=== PATIENT | male | born 1950 | race Caucasian/White ===

== ENCOUNTER 2017-12-21 11:27 | Day surgery (SDC) | payer MEDICARE, SELFPAY ==
--- NOTE | 2017-12-21 | PATH_ITS ---
[facility] Accession Number: [id number] . 01 Material submitted: . TRANSVERSE COLON POLYP . 02 Diagnosis: Transverse Colon Polyp: Tubular adenoma. MRV/12/23/2017 . 02 Electronically signed: . Ilan Rosales MD, PhD, Pathologist NPI- [id number] . 01 Gross description: . TRANSVERSE COLON POLYP: Received in formalin is 1 fragment(s) of grewal, soft tissue measuring 0.6 x 0.4 x 0.2 cm submitted entirely in 1 cassette(s) /CKI /CKI . 02 Pathologist provided ICD-10: D12.3 . 02 CPT . 965149 Performed at: 01 [facility] [address] [facility], [place], [place] [id number] MD Lev Partida MD Phone: [phone] Performed at: 02 [facility] [address] [place], [place] [id number] MD Terrell Elizondo MD Phone: [phone]
[2017-12-21 11:45] VITALS: BP 119/76; PULSE 73; RESP 16; TEMP 36.4; O2SAT 96; BMI 28.0
[2017-12-21] MEDS: SODIUM CHLORIDE 0.9% 1,000 ML 70 ML IV (11:57)
--- NOTE | 2017-12-21 12:21 | PM.HP.1 ---
History of Present Illness Date Patient Seen: 12/21/17 Chief complaint: [id number] NOT ON C LIST Narrative: 67-year-old male with type 2 diabetes and hypertension who is here for polyp surveillance. Patient currently taking aspirin. Last colonoscopy report is not available to me. The patient currently has no active GI issues or alarm symptoms. Patient History Family & Social History Social History: household members spouse Meds Home Medications Medication Instructions Recorded Confirmed Type ROSUVASTATIN CALCIUM (Crestor) 40 mg PO Q DAY #0 11/03/07 History quetiapine [Seroquel] 50 mg PO HS #0 12/31/10 History tramadol 50 mg PO Q8HP #0 12/31/10 History ASPIRIN (Aspirin) 81 mg PO Q DAY #0 04/17/11 History diazepam [Valium] 5 mg PO BID #0 04/17/11 History duloxetine [Cymbalta] 60 mg PO BID #0 04/17/11 History glimepiride [Amaryl] 4 mg PO [facility] #0 04/17/11 History metformin 1,000 mg PO BID #0 04/17/11 History irbesartan [Avapro] 300 mg PO QDAY #30 08/16/11 Rx Allergies Allergy/AdvReac Type Severity Reaction Status Date / Time INGREDIENT: NKDA - NO KNOWN Allergy Unknown Uncoded 07/20/17 11:53 DRUG ALLERGIES Review of Systems Review of Systems All systems reviewed & are unremarkable except as noted in HPI and below Exam Vital Signs (past 8 hours): - 12/21/17 11:45 Temperature 97.6 F Pulse Rate 73 Respiratory Rate 16 Blood Pressure 119/76 Pulse Oximetry 96 Oxygen Delivery Method Room Air Narrative Exam Narrative: General: Patient is overweight, not in apparent distress Cardiovascular: Regular rate and rhythm, no murmurs, rubs, or gallops; no evidence of edema; no palpable abdominal aortic aneurysm Gastrointestinal: Normoactive bowel sounds, soft, nontender, nondistended, no rebound tenderness, no hepatosplenomegaly, no evidence of hernia Assessment & Plan Plan: Assessment/Plan Narrative: 67-year-old male with history of colon polyps here for polyp surveillance. He has no active GI symptoms and appears stable for a colonoscopy. He is currently taking aspirin. Regarding the procedure(s), the risks and potential complications, benefits, and alternatives (including not doing the procedure) were discussed with the patient. The risks include but are not limited to bleeding, infection, perforation which may require surgical intervention, missed lesions, and adverse reactions to sedative medicines. After a question and answer period, the patient agreed to proceed with the procedure(s) and gives informed consent.
--- NOTE | 2017-12-21 12:42 | PM.HP.1 ---
History of Present Illness Chief complaint: [id number] NOT ON C LIST Narrative: 67-year-old male with type 2 diabetes and hypertension who is here for polyp surveillance. Patient currently taking aspirin. Last colonoscopy report is not available to me. The patient states he had polyps on his last colonoscopy which was around 10 years ago. The patient currently has no active GI issues or alarm symptoms. He is currently taking a baby aspirin. Patient History Family & Social History Social History: household members spouse Meds Home Medications Medication Instructions Recorded Confirmed Type ROSUVASTATIN CALCIUM (Crestor) 40 mg PO Q DAY #0 11/03/07 History quetiapine [Seroquel] 50 mg PO HS #0 12/31/10 History tramadol 50 mg PO Q8HP #0 12/31/10 History ASPIRIN (Aspirin) 81 mg PO Q DAY #0 04/17/11 History diazepam [Valium] 5 mg PO BID #0 04/17/11 History duloxetine [Cymbalta] 60 mg PO BID #0 04/17/11 History glimepiride [Amaryl] 4 mg PO [facility] #0 04/17/11 History metformin 1,000 mg PO BID #0 04/17/11 History irbesartan [Avapro] 300 mg PO QDAY #30 08/16/11 Rx Allergies Allergy/AdvReac Type Severity Reaction Status Date / Time INGREDIENT: NKDA - NO KNOWN Allergy Unknown Uncoded 07/20/17 11:53 DRUG ALLERGIES Review of Systems Review of Systems All systems reviewed & are unremarkable except as noted in HPI and below Exam Vital Signs (past 8 hours): - 12/21/17 11:45 Temperature 97.6 F Pulse Rate 73 Respiratory Rate 16 Blood Pressure 119/76 Pulse Oximetry 96 Oxygen Delivery Method Room Air Narrative Exam Narrative: General: Patient is overweight, not in apparent distress Cardiovascular: Regular rate and rhythm, no murmurs, rubs, or gallops; no evidence of edema; no palpable abdominal aortic aneurysm Gastrointestinal: Normoactive bowel sounds, soft, nontender, nondistended, no rebound tenderness, no hepatosplenomegaly, no evidence of hernia Assessment & Plan Plan: Assessment/Plan Narrative: [age] year old male with a history of colon polyps on last colonoscopy 10 years ago who is here for polyp surveillance. The patient currently has no active GI issues or alarm symptoms. He is on aspirin as an outpatient. Regarding the procedure(s), the risks and potential complications, benefits, and alternatives (including not doing the procedure) were discussed with the patient. The risks include but are not limited to bleeding, infection, perforation which may require surgical intervention, missed lesions, and adverse reactions to sedative medicines. After a question and answer period, the patient agreed to proceed with the procedure(s) and gives informed consent.
--- NOTE | 2017-12-21 12:48 | PM.HP.1 ---
History of Present Illness Date Patient Seen: 12/21/17 Chief complaint: [id number] NOT ON C LIST Narrative: 67-year-old male who is here for polyp surveillance. The patient had a colonoscopy around 10 years ago and was told he had polyps. At present the patient currently has no active GI issues or alarm symptoms. He is taking a baby aspirin as an outpatient. Patient History Family & Social History Social History: household members spouse Meds Home Medications Medication Instructions Recorded Confirmed Type ROSUVASTATIN CALCIUM (Crestor) 40 mg PO Q DAY #0 11/03/07 History quetiapine [Seroquel] 50 mg PO HS #0 12/31/10 History tramadol 50 mg PO Q8HP #0 12/31/10 History ASPIRIN (Aspirin) 81 mg PO Q DAY #0 04/17/11 History diazepam [Valium] 5 mg PO BID #0 04/17/11 History duloxetine [Cymbalta] 60 mg PO BID #0 04/17/11 History glimepiride [Amaryl] 4 mg PO [facility] #0 04/17/11 History metformin 1,000 mg PO BID #0 04/17/11 History irbesartan [Avapro] 300 mg PO QDAY #30 08/16/11 Rx Allergies Allergy/AdvReac Type Severity Reaction Status Date / Time INGREDIENT: NKDA - NO KNOWN Allergy Unknown Uncoded 07/20/17 11:53 DRUG ALLERGIES Review of Systems Review of Systems All systems reviewed & are unremarkable except as noted in HPI and below Exam Vital Signs (past 8 hours): - 12/21/17 11:45 Temperature 97.6 F Pulse Rate 73 Respiratory Rate 16 Blood Pressure 119/76 Pulse Oximetry 96 Oxygen Delivery Method Room Air Narrative Exam Narrative: General: Patient is overweight, not in apparent distress Cardiovascular: Regular rate and rhythm, no murmurs, rubs, or gallops; no evidence of edema; no palpable abdominal aortic aneurysm Gastrointestinal: Normoactive bowel sounds, soft, nontender, nondistended, no rebound tenderness, no hepatosplenomegaly, no evidence of hernia Assessment & Plan Plan: Assessment/Plan Narrative: 67-year-old male who is here for polyp surveillance. Her colonoscopy performed 10 years ago which showed polyps. He currently has no active GI issues. Regarding the procedure(s), the risks and potential complications, benefits, and alternatives (including not doing the procedure) were discussed with the patient. The risks include but are not limited to bleeding, infection, perforation which may require surgical intervention, missed lesions, and adverse reactions to sedative medicines. After a question and answer period, the patient agreed to proceed with the procedure(s) and gives informed consent.
--- NOTE | 2017-12-21 12:53 | PM.OP.ENDO ---
Operative Date/Time/Diagnoses Date of procedure: 12/21/17 Procedure Notes Procedure in detail: Surgeon: Guillermo Tena MD Procedure: Colonoscopy with polypectomy Preoperative diagnosis: Colon polyp surveillance Postoperative diagnosis: Colon polyp status post polypectomy, grade 1 internal hemorrhoids Medications: Conscious sedation using 6 mg IV of Midazolam and 100 mcg IV of Fentanyl Preanesthesia Assessment An H and P was performed/updated and the Px?s ASA class is 2. The procedure was discussed in detail with the patient. The potential risks and complications including infection, bleeding, missed lesions, perforation, need for surgery in case of perforation, prolonged hospital stay, and were explained. A brief question and answer period was allotted and once all questions were answered, informed consent was obtained. The patient was brought back to the procedure room and placed on standard monitoring. The patient?s vital signs were monitored continuously throughout the entire procedure. Prior to starting, a timeout was performed to confirm the patient?s identity, allergies, medications, and procedure. Procedure in detail The patient was placed in left lateral decubitus position and once adequate sedation was obtained a SUNDAY was performed. The digital rectal examination did not reveal any palpable lesions. The tip of the colonoscope was placed in the anal canal and advanced without difficulty all the way to the cecum which was identified by the appendiceal orifice and the ileocecal valve. The terminal ileum was intubated to a distance of 5 cm from the ileocecal valve and the mucosa appeared normal. The colonoscope was then brought back to the cecum and careful examination of all wallace of the colon was performed with irrigation of any residual stool. In the transverse colon there was note of a 3 mm sessile polyp which was removed in its entirety by means of a Jumbo cold forceps with minimal bleeding. Examination of the remainder of the colon revealed no further mucosal abnormalities Retroflexion was performed in the rectum which revealed grade 1 internal hemorrhoids The patient tolerated the procedure well and will be brought back to the recovery area to be discharged once criteria are met. The prep was judged to be good/excellent and adequate to identify polyps less than 5 mm. The withdrawal time was 8 min. The total procedure time from initial sedation was 15 min. Complications There were no complications and estimated blood loss was minimal. Recommendations: Resume previous diet Continue outPx medications Follow up pathology results Repeat colonoscopy in 5 years An emergency contact number was given to the patient for any complications related to the procedure
[2017-12-21] MEDS: MIDAZOLAM 5 MG/5 ML VIAL IV (13:13)
[2017-12-21] MEDS: fentaNYL 250 MCG/5 ML INJ IV (13:18)
[2017-12-21 13:20] VITALS: BP 109/67; PULSE 77; RESP 16; TEMP 36.6; O2SAT 96
--- NOTE | 2017-12-21 13:21 | PM.DS.1 ---
History of Present Illness Chief complaint: [id number] NOT ON C LIST Narrative: 67-year-old male who is here for polyp surveillance. The patient had a colonoscopy around 10 years ago and was told he had polyps. At present the patient currently has no active GI issues or alarm symptoms. He is taking a baby aspirin as an outpatient. Discharge Providers Primary care physician: Francisco Levine MD Discharge provider: Guillermo Tena MD Exam Vital Signs (past 8 hours): - 12/21/17 11:45 Temperature 97.6 F Pulse Rate 73 Respiratory Rate 16 Blood Pressure 119/76 Pulse Oximetry 96 Oxygen Delivery Method Room Air Narrative Exam Narrative: General: Patient is overweight, not in apparent distress Cardiovascular: Regular rate and rhythm, no murmurs, rubs, or gallops; no evidence of edema; no palpable abdominal aortic aneurysm Gastrointestinal: Normoactive bowel sounds, soft, nontender, nondistended, no rebound tenderness, no hepatosplenomegaly, no evidence of hernia Discharge Plan Discharge Plan Patient Disposition: Home Discharge Med Rec/Prescriptions Prescriptions: Continue ROSUVASTATIN CALCIUM (Crestor) 40 mg PO Q DAY Qty: 0 RF: 0 tramadol 50 MG tablet 50 mg PO Q8HP Qty: 0 RF: 0 quetiapine [Seroquel] 50 MG tablet 50 mg PO HS Qty: 0 RF: 0 metformin 1,000 MG tablet 1,000 mg PO BID Qty: 0 RF: 0 duloxetine [Cymbalta] 60 MG capsule,delayed release(DR/EC) 60 mg PO BID Qty: 0 RF: 0 ASPIRIN (Aspirin) 81 mg PO Q DAY Qty: 0 RF: 0 diazepam [Valium] 5 MG tablet 5 mg PO BID Qty: 0 RF: 0 glimepiride [Amaryl] 4 MG tablet 4 mg PO [facility] Qty: 0 RF: 0 irbesartan [Avapro] 300 MG tablet 300 mg PO QDAY Qty: 30 RF: 3 Discharge Orders: Discharge (Order); Ordered 12/21/17 Ordered By: Guillermo Tena Provider Discharge Instructions Diet: Diet as Tolerated Visit Report/Discharge Packet Stand Alone Forms: Surgery Discharge Discharge Data Primary Care Provider: Francicso Levine V Attending Provider: Guillermo Tena
[2017-12-21 13:25] VITALS: BP 138/69; PULSE 70; RESP 18; TEMP 36.1; O2SAT 97
--- NOTE | 2017-12-21 13:49 | SUR.PHASEII ---
pt was placed in room 1 and no report was received assumed care of pt when I found him in the room. Pt was assessed and he was stable and vital signs stable. pt was drinking without difficulty. Lungs were clear and bowel sounds active. pt had d/c orders. Pt was wide awake and stated he wanted to go home. Pt pleasant and cooperative and steady on his feet.
== END 2017-12-21 13:40 | disposition home or self-care (01) ==
PROVIDERS: PCP Internal Medicine; Visit Provider Internal Medicine Gastroenterology
PROC: 0DJD8ZZ Inspection of Lower Intestinal Tract, Via Natural or Artificial Opening Endoscopic (ICD-10-PCS; CPT 45378; principal; 2017-12-21 12:30)
DX: Z86.010 Personal history of colon polyps (principal); K64.0 First degree hemorrhoids; D12.3 Benign neoplasm of transverse colon
CPT/HCPCS: 45380; J2250; J3010

== ENCOUNTER → 2019-12-24 19:14 | Outpatient (ROUT) | payer MEDICARE, SELFPAY ==
[2019-12-24 19:43] LABS: HEMOLYSIS < 15 (0-50)
[2019-12-24 19:50] LABS: Aspartate Aminotransferase 21 IU/L (17-59); BUN Creatinine Ratio 27.3 (6-22); Blood Urea Nitrogen 21 mg/dL (9-20); Calcium 9.4 mg/dL (8.4-10.2); Carbon Dioxide 32 mmol/L (22-32); Chloride 98 mmol/L (98-107); Cholesterol 136 mg/dL (140-199); Estimated Glomerular Filt Rate > 60.0 mL/min (>60); Glucose 166 mg/dL (80-110); HDL Cholesterol 45 mg/dL (40-60); LDL Cholesterol Calculated 41 mg/dL (<100); Potassium 3.4 mmol/L (3.4-5.1); Sodium 138 mmol/L (137-145); Triglycerides 251 mg/dL (35-150)
== END ==
PROVIDERS: PCP Internal Medicine; Visit Provider Internal Medicine
DX: I10 Essential (primary) hypertension (principal); E78.2 Mixed hyperlipidemia; N52.9 Male erectile dysfunction, unspecified
CPT/HCPCS: 80048; 80061; 84153; 84450

== ENCOUNTER → 2023-03-24 11:50 | Outpatient (CLI) | payer MEDICARE, SELFPAY ==
[2023-03-24 15:35] LABS: Adenovirus F 40/41 Not Detected (Not Detect); Astrovirus Not Detected (Not Detect); Campylobacter Not Detected (Not Detect); Clostridium difficile toxin AB Not Detected (Not Detect); Cryptosporidium Not Detected (Not Detect); Cyclospora cayetanensis Not Detected (Not Detect); Entamoeba histolytica Not Detected (Not Detect); Enteroaggregative E.coli Not Detected (Not Detect); Enteropathogenic E.coli Not Detected (Not Detect); Enterotoxigenic E.coli It/st Not Detected (Not Detect); Giardia lamblia Not Detected (Not Detect); Norovirus GI/GII Not Detected (Not Detect); Plesiomonsa shigelloides Not Detected (Not Detect); Rotavirus A Not Detected (Not Detect); Salmonella Not Detected (Not Detect); Sapovirus Not Detected (Not Detect); Shiga-like toxin-prod E.coli Not Detected (Not Detect); Shigella/Enteroinvasive E.coli Not Detected (Not Detect); Vibrio Not Detected (Not Detect); Vibrio cholerae Not Detected (Not Detect); Yersinia enterocolitica Not Detected (Not Detect)
[2023-03-28 14:59] LABS: Calprotectin, Stool 20 ug/g (0-120)
== END ==
PROVIDERS: PCP Internal Medicine; Referring Provider Internal Medicine Gastroenterology; Visit Provider Internal Medicine Gastroenterology
DX: E11.43 Type 2 diabetes mellitus with diabetic autonomic (poly)neuropathy (principal); R79.0 Abnormal level of blood mineral; R19.7 Diarrhea, unspecified
CPT/HCPCS: 83993; 87507

== ENCOUNTER → 2024-02-10 12:00 | Outpatient (CLI) | payer MEDICARE, SELFPAY ==
[2024-02-10 12:48] LABS: Hematocrit 42.3 % (41-53); Hemoglobin 14.5 g/dL (13.5-17.5); Mean Corpuscular HGB Conc 34.2 % (30-36); Mean Corpuscular Hemoglobin 30.2 PG (26-34); Mean Corpuscular Volume 88.3 fL (80-100); Platelet Count 194 X10^3/uL (150-400); Red Blood Cell Count 4.79 X10^6/uL (4.5-5.9); Red Cell Distribution Width 13.1 % (11.6-14.8); White Blood Cell Count 8.5 X10^3/uL (4.5-11.0)
[2024-02-10 12:59] LABS: Hemoglobin A1C% w Est Avg Glu 9.2 % (4.0-6.0)
[2024-02-10 13:06] LABS: HEMOLYSIS < 15 (0-50); Iron 101 ug/dL (49-181)
[2024-02-10 13:10] LABS: Alanine Aminotransferase 39 IU/L (<50); Albumin 4.1 g/dL (3.5-5.0); Albumin Globulin Ratio 1.9 (1.0-2.8); Alkaline Phosphatase 81 U/L (38-126); Aspartate Aminotransferase 30 IU/L (17-59); Bilirubin Total 0.7 mg/dL (0.2-1.3); Blood Urea Nitrogen 16 mg/dL (9-20); Calcium 9.4 mg/dL (8.4-10.2); Carbon Dioxide 27 mmol/L (22-32); Chloride 101 mmol/L (98-107); Cholesterol 97 mg/dL (140-199); Estimated Glomerular Filt Rate > 60 mL/min (>60); Globulin 2.2 g/dL (1.7-4.1); Glucose 307 mg/dL (80-110); HDL Cholesterol 47 mg/dL (40-60); HEMOLYSIS < 15 (0-50); LDL Cholesterol Calculated 16 mg/dL (<100); Potassium 4.5 mmol/L (3.4-5.1); Sodium 137 mmol/L (137-145); Total Protein 6.3 g/dL (6.3-8.2); Triglycerides 171 mg/dL (35-150)
[2024-02-10 13:17] LABS: Percent Iron Saturation 27 % (20-50); Total Iron Binding Capacity 375 ug/dL (261-462); Transferrin 296 mg/dL (206-381)
[2024-02-10 13:37] LABS: Prostate Specific Antigen 1.17 ng/mL (0.10-4.00)
[2024-02-10 13:41] LABS: Ferritin 39 ng/mL (18-464)
[2024-02-10 14:29] LABS: Creatinine Urine Random 131.03 mg/dL
[2024-02-10 14:36] LABS: Microalbumin Urine Random 3.1 mg/dL (0-1.6)
== END ==
PROVIDERS: PCP Internal Medicine; Referring Provider Internal Medicine; Visit Provider Internal Medicine
DX: N13.8 Other obstructive and reflux uropathy (principal); E11.69 Type 2 diabetes mellitus with other specified complication; N40.1 Benign prostatic hyperplasia with lower urinary tract symptoms; E78.2 Mixed hyperlipidemia; D50.9 Iron deficiency anemia, unspecified; E11.42 Type 2 diabetes mellitus with diabetic polyneuropathy; I10 Essential (primary) hypertension; F41.1 Generalized anxiety disorder; G47.00 Insomnia, unspecified; G47.09 Other insomnia; D50.0 Iron deficiency anemia secondary to blood loss (chronic); Z86.0100 Personal history of colon polyps, unspecified
CPT/HCPCS: 36415; 80053; 80061; 82043; 82570; 82728; 83036; 83540; 83550; 84153; 85027

== ENCOUNTER → 2024-06-19 13:45 | Outpatient (CLI) | payer MEDICARE, SELFPAY ==
--- NOTE | 2024-06-19 14:04 | DIAB.MNT ---
Initial Diabetes Medical Nutrition Therapy Assessment Name: Gatito Turk I Date: 06/19/24 Time: 2-3p Dx: Type II Diabetes Provider: Julianna Preferred Learning Style: Scott Mederos presents for initial DM visit. Reports h/o diarrhea, and has been taking probiotics which has been helpful. Increased Rybelsus to 7mg, no changes to appetite. No diarrhea reported. Provider would like to have him trial CGM sample. He is open to this and would like to try FSL3. If he likes this will discuss OTC options Wants to know if he can eat popcorn or ice cream. Needs breakfast ideas that are filling. Cooks breakfast in butter at times. Avoiding eggs. Cholesterol in range, TG elevated. Eating a coconut cream whipped that seems higher in sugar and sat fat than regular whipped cream. Grandfather lost eye sight from diabetes. UTD on his eye appt. Lost his a couple years ago. Getting remarried. Diet Recall: 8am: 1/3c berries with 1.5c oatmeal with milk +/- almonds 12-1p: ww sandwich egg salad OR soup 530-630p: chicken and acorn squash OR 2 enchiladas, 1/2c rice and 1/2c beans 730-8p: 1c sf canned peaches and 1 banana +/- johanna whipped cream 16oz water sf electrolyte beverage Anthropometrics: Ht: 5'10 Wt: 180# Physical Activity: Just joined a gym and wants to start walking. Self-Monitoring Blood Glucose: 2x per week, FBG. Usually running 150-250mg/dl, often running above goal per report. Diabetes Medications: 25mg Jardiance 1000mg Metformin BID 100mg Januvia 7mg Rybelsus Pertinent Labs: HgA1c: 9.2% Past Medical History: (Last Reviewed 05/08/24 @ 07:43 by Francisco Levine MD) BPH w urinary obs/LUTS DM type 2 with diabetic dyslipidemia Essential hypertension Generalized anxiety disorder History of colonic polyps Insomnia Iron deficiency anemia Mixed hyperlipidemia Polyneuropathy, unspecified Type 2 diabetes mellitus with polyneuropathy Nutrition Rx: Carbohydrates: Meal:45g Snack:15-30g Nutrition Diagnosis: - Excessive CHO intake r/t nutrition knowledge deficit aeb diet recall - Self monitoring deficit r/t stage of change aeb checking 2x per week Intervention: This participant was very receptive. Provided appropriate educational handouts. Discussed the following topics: Completed intake assessment. Discussed barriers to care. Pathophysiology of T2DM CGM education, precautions, and self placement Importance of self-monitoring, how often, and when to check. Suggested checking at different times to evaluate meals Recommended servings for carbohydrates at meals and snacks Heart health nutrition: saturated fats Brainstormed appropriate meal/snack ideas based on food preferences Role of physical activity and following provider guidelines for safety Created SMART goals for patient self-care and success. Goals: Wear CGM x 15 days Cook Urdu [place] in olive oil Limit oatmeal to 1c cooked and add protein Try half banana and add protein to peaches Follow-up: ANILA PASCUAL follow-up in 2-3 weeks. Will cover label reading more next visit. Melba Montero RDN, CDCES Certified Diabetes Care and Behavioral Health Care Coordinator P: [phone] Thank you for this referral
== END ==
PROVIDERS: PCP Internal Medicine; Referring Provider Internal Medicine
DX: E11.42 Type 2 diabetes mellitus with diabetic polyneuropathy (principal); Z71.3 Dietary counseling and surveillance; Z83.3 Family history of diabetes mellitus; Z79.84 Long term (current) use of oral hypoglycemic drugs
CPT/HCPCS: 97802

== ENCOUNTER → 2024-08-13 06:58 | Outpatient (CLI) | payer MEDICARE, SELFPAY ==
[2024-08-13 07:53] LABS: Hemoglobin 14.8 g/dL (13.5-17.5); Mean Corpuscular HGB Conc 33.7 % (30-36); Mean Corpuscular Hemoglobin 29.5 PG (26-34); Mean Corpuscular Volume 87.6 fL (80-100); Platelet Count 180 X10^3/uL (150-400); Red Blood Cell Count 5.03 X10^6/uL (4.5-5.9); Red Cell Distribution Width 13.8 % (11.6-14.8)
[2024-08-13 08:03] LABS: Hemoglobin A1C% w Est Avg Glu 9.9 % (4.0-6.0)
[2024-08-13 08:12] LABS: HEMOLYSIS < 15 (0-50); Iron 79 ug/dL (49-181)
[2024-08-13 08:17] LABS: BUN Creatinine Ratio 33.8 (6-22); Blood Urea Nitrogen 24 mg/dL (9-20); Calcium 8.9 mg/dL (8.4-10.2); Carbon Dioxide 26 mmol/L (22-32); Chloride 104 mmol/L (98-107); Estimated Glomerular Filt Rate > 60 mL/min (>60); Glucose 309 mg/dL (70-99); HEMOLYSIS < 15 (0-50); Potassium 4.5 mmol/L (3.4-5.1); Sodium 138 mmol/L (137-145)
[2024-08-13 08:26] LABS: Percent Iron Saturation 23 % (20-50); Total Iron Binding Capacity 338 ug/dL (261-462); Transferrin 274 mg/dL (206-381)
[2024-08-13 08:48] LABS: Ferritin 42 ng/mL (18-464)
== END ==
PROVIDERS: PCP Internal Medicine; Referring Provider Internal Medicine; Visit Provider Internal Medicine
DX: D50.9 Iron deficiency anemia, unspecified (principal); E11.42 Type 2 diabetes mellitus with diabetic polyneuropathy
CPT/HCPCS: 36415; 80048; 82728; 83036; 83540; 83550; 85027

== ENCOUNTER → 2024-08-24 09:49 | Outpatient (CLI) | payer MEDICARE, SELFPAY ==
--- NOTE | 2024-08-24 09:53 | DIAB.MNTFU ---
Follow-up Diabetes Medical Nutrition Therapy Assessment Name: Gatito Turk I Date: 08/24/24 Time: 100a Dx: Type II Diabetes Gatito presents for follow-up DM visit. Recent increased hgA1c up to 9.9% 08/2024 States he would like to avoid CGM at this time, but is open to trying another sample in the future. Worries about knocking sensor off. Reports wearing the CGM in June. Misssed our July visit. Per CGM reports few variations in BG, however consistently elevated. States he has not checked FBG recently, but they are often in the 180-330s, sometimes <150 per report. Based on CGM report and DM medications currently, seems he would benefit from insulin therapy. He reports he and Dr. Levine have discussed this. Last PCP appt, increased Rybelsus to 14mg. Will monitor BG with this new change and see what might be warranted BG [place]. Diet recall indicates moderate CHO intake within recs. Has reduced fruit portion to 15g CHO with protein as discussed last visit. Also using heart healthy fats. Has d/c oats for breakfast. Grandfather lost eye sight from diabetes. States he was on insulin therapy. UTD on his eye appt. Lost his a couple years ago. Getting remarried. Diet Recall: 8am: low sugar yogurt with berries and nuts 12-1p: burger with bun and cottage cheese 530-630p: protein and cottage cheese with small potato or 1c starch 930p: low sugar yogurt with berries and nuts 16oz water sf ICE beverage 34oz energy drink x1-2 Anthropometrics: Ht: 5'10 Wt: 181.5# 08/2024 Physical Activity: walking 3x per week for 60 min Self-Monitoring Blood Glucose: None lately. Previous results for FB, 145, 248, 221, 196, 240, 208, 290, 117, 128. Today reports 330mg/dl. Excessive hyperglycemia per most FBG and CGM. TIR from June Sample: 46% very high 48% high 6% in range 0% low avmg/dl GMI: 9.2% variance: 17.1% Diabetes Medications: 25mg Jardiance 1000mg Metformin BID 100mg Januvia 7mg Rybelsus ---- now 14mg last few days Pertinent Labs: HgA1c: 9.2% 02/2024 9.9% 08/2024 Past Medical History: (Last Reviewed 05/08/24 @ 07:43 by Francisco Levine MD) BPH w urinary obs/LUTS DM type 2 with diabetic dyslipidemia Essential hypertension Generalized anxiety disorder History of colonic polyps Insomnia Iron deficiency anemia Mixed hyperlipidemia Polyneuropathy, unspecified Type 2 diabetes mellitus with polyneuropathy Nutrition Rx: Carbohydrates: Meal:45g Snack:15-30g Nutrition Diagnosis: - Excessive CHO intake r/t nutrition knowledge deficit aeb diet recall - improved - Self monitoring deficit r/t stage of change aeb checking 2x per week- in progress Intervention: This participant was very receptive. Provided appropriate educational handouts. Discussed the following topics: Importance of self-monitoring to evaluate meds and state of Dm DM pathophysiology and progressive nature Recommended servings for carbohydrates at meals and snacks Physical activity Insulin education and injection technique/return demo Created SMART goals for patient self-care and success. Goals: Wear CGM x 15 days- met Cook Syriac [place] in olive oil- met Limit oatmeal to 1c cooked and add protein- d/c Try half banana and add protein to peaches - met Start checking FBG daily - new Follow-up: ANILA PASCUAL follow-up in 4 weeks. Seems as though Gatito may be a good insulin therapy candidate, however will monitor FBG with increased Rybelsus. Diet changes since last visit seem within goal. If hyperglycemia continues prior to PCP visit, will message PCP for potential intervention. Melba Montero, ANILA, ANKUR Certified Diabetes Care and Registered Nurses P: [phone] Thank you for this referral
== END ==
LOC: DIET 09:49
PROVIDERS: PCP Internal Medicine; Referring Provider Internal Medicine
DX: E11.65 Type 2 diabetes mellitus with hyperglycemia (principal); Z83.3 Family history of diabetes mellitus; Z79.84 Long term (current) use of oral hypoglycemic drugs
CPT/HCPCS: 97803

== ENCOUNTER → 2024-10-03 08:51 | Outpatient (CLI) | payer MEDICARE, SELFPAY ==
--- NOTE | 2024-10-03 09:07 | DIAB.FU ---
Follow-up Diabetes Education Assessment Name: Gatito Turk I Date: 10/03/24 Time: 151-743e Dx: Type II Diabetes Gatito presents for follow-up DM visit. Taking 5u Lantus. Restarted Rybelsus since being out of it x 1 week. BG still >200mg/dl in the morning most days. Per PCP notes, if FBG still elevated x 1 week, increase Lantus to 10u. PCP also encouraged CGM. Gatito has tried CGm in the past and is willing to try again. States he and provider discussed potential for insulin pump, he has questions regarding. Went to ortho about knee. States when he cannot take the pain, will get total knee replacement. Needs BG to be well managed to get surgery. Diet recall continues to be moderate to low in CHO intake. Predict hyperglycemia is r/t progression of Dm. Grandfather lost eye sight from diabetes. States he was on insulin therapy. UTD on his eye appt. Lost his a couple years ago. Getting remarried. Anthropometrics: Ht: 5'10 Wt: 181.5# 08/2024 Physical Activity: walking 3x per week for 60 min Self-Monitoring Blood Glucose: Restarted FBG checks and did one reading later in the day. FBG running 255-300s per report, none for review. One reading of 199mg/dl HS. Self placed CGm sample today. If goes well, will request rx for CGM. Reports low symptoms at 100mg/dl, ie shaky, foggy, anxious, confused. Keeps sugar gummies for lows. TIR from June Sample: 46% very high 48% high 6% in range 0% low avmg/dl GMI: 9.2% variance: 17.1% Diabetes Medications: 25mg Jardiance 1000mg Metformin BID 100mg Januvia 14mg Rybelsus 5u Lantus Pertinent Labs: HgA1c: 9.2% 02/2024 9.9% 08/2024 Past Medical History: (Last Reviewed 05/08/24 @ 07:43 by Francisco Levine MD) BPH w urinary obs/LUTS DM type 2 with diabetic dyslipidemia Essential hypertension Generalized anxiety disorder History of colonic polyps Insomnia Iron deficiency anemia Mixed hyperlipidemia Polyneuropathy, unspecified Type 2 diabetes mellitus with polyneuropathy Intervention: This participant was very receptive. Provided appropriate educational handouts. Discussed the following topics: Insulin pump: how they work, connection to CGM, pump vs MDI, pros/cons Encouraged CGM sample again and discussed pros of use with insulin therapy. Reviewed precautions. Medication management per PCP recs review of low BG tx Created SMART goals for patient self-care and success. Goals: Start checking FBG daily - met Move up to 10u Lantus per PCP recs- new Wear CGM x 15 days - new Follow-up: ANILA PASCUAL follow-up in 2 weeks Melba Montero RDN, ANKUR Certified Diabetes Care and Parts Consultant P: [phone] Thank you for this referral
== END ==
LOC: DIET 08:51
PROVIDERS: PCP Internal Medicine; Referring Provider Internal Medicine
DX: E11.9 Type 2 diabetes mellitus without complications (principal); Z79.4 Long term (current) use of insulin; Z83.3 Family history of diabetes mellitus; Z79.84 Long term (current) use of oral hypoglycemic drugs
CPT/HCPCS: G0108

== ENCOUNTER → 2024-10-17 09:03 | Outpatient (CLI) | payer MEDICARE, SELFPAY ==
--- NOTE | 2024-10-17 09:52 | DIAB.MNTFU ---
Follow-up Diabetes Medical Nutrition Therapy Assessment Name: Gatito Turk I Date: 10/17/24 Time: 224-750a Dx: Type II Diabetes Gatito presents for follow-up DM visit. Taking 15u Lantus, self titrated. Based on wt, could increase up to a max of 40u before considering meal time insulin. Endorses limited veggie intake. Fiance does not eat much veggie either per report. Taking a probiotic supplement which seems to help with IBS symptoms per report. Wants to retry CGM sample with an adhesive patch to help with placement. last one came off after a shower after 3-4 days. Diet recall continues to be moderate to low in CHO intake. Predict hyperglycemia is r/t progression of Dm. Diet recall: 9-10a: sugar free [place] yogurt with 1/2c berries 1p: sugar free cookie or 1 piece of fruit 530p: salmon OR chicken with peas 930p: sugar free [place] yogurt with berries water 16-24oz sf beverages and energy drink sf Grandfather lost eye sight from diabetes. States he was on insulin therapy. UTD on his eye appt. Lost his a couple years ago. Getting remarried. Anthropometrics: Ht: 5'10 Wt: 174.8# reported 10/2024 181.5# 08/2024 Physical Activity: walking 3x per week for 60 min Self-Monitoring Blood Glucose: Wants to try CGM again. Per TIR experiencing excessive time >250mg/dl. RD messaged PCP regarding results and titration. TIR: 69% very high 29% high 2% in range 0% low avmg/dl GMI: % variance: 21.4% TIR from June Sample: 46% very high 48% high 6% in range 0% low avmg/dl GMI: 9.2% variance: 17.1% Diabetes Medications: 25mg Jardiance 1000mg Metformin BID 100mg Januvia 14mg Rybelsus 15u Lantus Pertinent Labs: HgA1c: 9.2% 02/2024 9.9% 08/2024 Past Medical History: (Last Reviewed 05/08/24 @ 07:43 by Francisco Levine MD)BPH w urinary obs/LUTS DM type 2 with diabetic dyslipidemia Essential hypertension Generalized anxiety disorder History of colonic polyps Insomnia Iron deficiency anemia Mixed hyperlipidemia Polyneuropathy, unspecified Type 2 diabetes mellitus with polyneuropathy Nutrition Rx: Carbohydrates: Meal:45gSnack:15-30g Nutrition Diagnosis: - Self monitoring deficit r/t stage of change aeb checking 2x per week- improved - Predicted inadequate fiber intake r/t limited whole grains or veggies aeb diet recall- new - Inadequate fluid intake r/t stage of change contemplative for adding more water aeb pt report and diet recall- new Intervention: This participant was very receptive. Provided appropriate educational handouts. Discussed the following topics: Medication management Hydration recs Strategies for adding veggies BG review and goals Created SMART goals for patient self-care and success. Goals: Move up to 10u Lantus per PCP recs- met Wear CGM x 15 days - met and continue Aim for 24-32oz water/day- new veggies 1x per day- new Follow-up: ANILA PASCUAL follow-up in 2-3 weeks. Will roshan pt after hearing from provider about insulin titration schedule. Rec increasing up to 40u max until FBG are in goal. Melba Montero RDN, [facility] Certified Diabetes Care and Scientific Systems Analyst P: [phone] Thank you for this referral
== END ==
PROVIDERS: PCP Internal Medicine
DX: E11.65 Type 2 diabetes mellitus with hyperglycemia (principal); Z79.4 Long term (current) use of insulin; Z71.3 Dietary counseling and surveillance; Z79.84 Long term (current) use of oral hypoglycemic drugs
CPT/HCPCS: 97803

== ENCOUNTER → 2024-11-21 11:34 | Outpatient (CLI) | payer MEDICARE, SELFPAY ==
[2024-11-21 13:17] LABS: Hemoglobin A1C% w Est Avg Glu 8.6 % (4.0-6.0)
[2024-11-21 13:19] LABS: Blood Urea Nitrogen 16 mg/dL (9-20); Calcium 9.1 mg/dL (8.4-10.2); Carbon Dioxide 26 mmol/L (22-32); Chloride 103 mmol/L (98-107); Estimated Glomerular Filt Rate > 60 mL/min (>60); Glucose 115 mg/dL (70-99); HEMOLYSIS < 15 (0-50); Potassium 3.8 mmol/L (3.4-5.1); Sodium 139 mmol/L (137-145)
[2024-11-23 05:10] LABS: Insulin Level Total 15.8 uIU/mL (2.6-24.9)
== END ==
PROVIDERS: PCP Internal Medicine; Referring Provider Internal Medicine; Visit Provider Internal Medicine
DX: E11.69 Type 2 diabetes mellitus with other specified complication (principal); E78.5 Hyperlipidemia, unspecified
CPT/HCPCS: 36415; 80048; 83036; 83525; 84681

== ENCOUNTER → 2024-12-07 07:55 | Outpatient (CLI) | payer MEDICARE, SELFPAY ==
--- NOTE | 2024-12-14 10:34 | DIAB.FU ---
Follow-up Diabetes Education Assessment Name: Gatito Turk I Date: 12/07/24 Time: 810-840a Dx: Type II Diabetes Gatito presents for follow-up DM visit. Up to 30u Lantus. Taking Rybelsus again x 1 week. Endorses reduced appetite Reports 5-6 x 12 oz water or sf beverages. has not picked up Metformin XR yet. Endorses diarrhea over the last couple years. Still having excessive time above goal BG. Grandfather lost eye sight from diabetes. States he was on insulin therapy. UTD on his eye appt. Anthropometrics: Ht: 5'10 Wt: 174.8# reported 10/2024 181.5# 08/2024 Physical Activity: walking 3x per week for 60 min Self-Monitoring Blood Glucose: Continued improvement in BG, though still significant time >250. TIR: 10% very high 42% high 48% in range 0% low avmg/dl GMI: 7.8% variance: 23.1% Last TIR: 9% very high 50% high 41% in range 0% low avmg/dl GMI: 7.9% variance: 19.9% Diabetes Medications: 25mg Jardiance 1000mg Metformin BID 100mg Januvia 14mg Rybelsus 30u Lantus Pertinent Labs: HgA1c: 9.2% 02/2024 9.9% 08/2024 8.6% 11/2024 Past Medical History: (Last Reviewed 05/08/24 @ 07:43 by Francisco Levine MD)BPH w urinary obs/LUTSDM type 2 with diabetic dyslipidemia Essential hypertension Generalized anxiety disorder History of colonic polyps Insomnia Iron deficiency anemia Mixed hyperlipidemia Polyneuropathy, unspecified Type 2 diabetes mellitus with polyneuropathy Intervention: This participant was very receptive. Provided appropriate educational handouts. Discussed the following topics: Medication management BG review and goals Metformin vs Metformin XR insulin titration Hydration Created SMART goals for patient self-care and success. Goals: Increase HS insulin to 27u tonight- met account support associate Rybelsus- met account support associate Metformin XR- new Titrate insulin as discussed - new Follow-up: ANILA PASCUAL follow-up in 2-3 weeks Melba Montero RDN, [facility] Certified Diabetes Care and Ear Flap Binder P: [phone] Thank you for this referral
== END ==
LOC: DIET 07:56
PROVIDERS: PCP Internal Medicine; Referring Provider Internal Medicine
DX: E11.9 Type 2 diabetes mellitus without complications (principal); Z71.3 Dietary counseling and surveillance; Z79.84 Long term (current) use of oral hypoglycemic drugs; Z79.4 Long term (current) use of insulin
CPT/HCPCS: G0108

== ENCOUNTER → 2025-02-19 08:02 | Outpatient (CLI) | payer MEDICARE, SELFPAY ==
--- NOTE | 2025-03-19 07:49 | DIAB.FU ---
Follow-up Diabetes Education Assessment Name: Gatito Turk I Date: 02/19/25 Time: 805-310 Dx: Type II Diabetes Gatito presents for follow-up DM visit. Up to 40u Lantus. Continued diarrhea q other day x 2 years per report. Immodium helps. Sees GI at [facility]. Restarted Dm meds 4-58 days ago. Stopped while on vacation due to forgetting meds. Back to not taking Rybelsus. Diet recall indicates low to moderate CHO intake. Choosing low CHO beverages. Grandfather lost eye sight from diabetes. States he was on insulin therapy. UTD on his eye appt. Anthropometrics: Ht: 5'10 Wt: 174.8# reported 10/2024 181.5# 08/2024 Physical Activity: Reduced lately due to barrier of pain. Wants knee replacement but needs BG to come down. I need to be more active Self-Monitoring Blood Glucose: Increased hyperglycemia from not taking Dm meds consistently. TIR: 49% very high 41% high 10% in range 0% low avmg/dl GMI: 9.4% variance: 24.4% Last TIR: 10% very high 42% high 48% in range 0% low avmg/dl GMI: 7.8% variance: 23.1% Diabetes Medications: 25mg Jardiance 1000mg Metformin BID 100mg Januvia 14mg Rybelsus-- not taking 30u Lantus Pertinent Labs: HgA1c: 9.2% 02/2024 9.9% 08/2024 8.6% 11/2024 Past Medical History: (Last Reviewed 05/08/24 @ 07:43 by Francisco Levine MD)BPH w urinary obs/LUTSDM type 2 with diabetic dyslipidemia Essential hypertension Generalized anxiety disorder History of colonic polyps Insomnia Iron deficiency anemia Mixed hyperlipidemia Polyneuropathy, unspecified Type 2 diabetes mellitus with polyneuropathy Intervention: This participant was very receptive. Provided appropriate educational handouts. Discussed the following topics: Medication management and importance of consistent use BG review and goals Physical activity Goals for activity and BG for knee replacement potentially Created SMART goals for patient self-care and success. Goals: supervisor park workers Metformin XR- not met Titrate insulin as discussed - met Call pharmacy regarding Rybelsus- new Follow-up: ANILA PASCUAL follow-up in 3-4 weeks Melba Montero RDN, [facility] [place] Certified Diabetes Care and Recruitment And Outreach Assistant P: [phone] Thank you for this referral
== END ==
LOC: DIET 08:03
PROVIDERS: PCP Internal Medicine; Referring Provider Internal Medicine
DX: E11.65 Type 2 diabetes mellitus with hyperglycemia (principal); Z71.3 Dietary counseling and surveillance; Z83.3 Family history of diabetes mellitus; Z79.84 Long term (current) use of oral hypoglycemic drugs; Z79.4 Long term (current) use of insulin
CPT/HCPCS: G0108

== ENCOUNTER → 2025-02-21 08:24 | Outpatient (CLI) | payer MEDICARE, SELFPAY ==
[2025-02-21 10:00] LABS: Blood Urea Nitrogen 21 mg/dL (9-20); Calcium 9.2 mg/dL (8.4-10.2); Carbon Dioxide 26 mmol/L (22-32); Chloride 105 mmol/L (98-107); Cholesterol 94 mg/dL (140-199); Estimated Glomerular Filt Rate > 60 mL/min (>60); Glucose 207 mg/dL (70-99); HDL Cholesterol 52 mg/dL (40-60); HEMOLYSIS 29 (0-50); Potassium 4.7 mmol/L (3.4-5.1); Sodium 139 mmol/L (137-145); Triglycerides 102 mg/dL (35-150)
[2025-02-21 10:31] LABS: Prostate Specific Antigen 1.55 ng/mL (0.10-4.00)
[2025-02-21 11:18] LABS: Hemoglobin A1C% w Est Avg Glu 8.4 % (4.0-6.0)
[2025-02-21 20:56] LABS: Microalbumi Creatinin Ratio Ur 40.0 ug/mg CR (<30)
== END ==
PROVIDERS: PCP Internal Medicine; Referring Provider Internal Medicine; Visit Provider Internal Medicine
DX: E11.69 Type 2 diabetes mellitus with other specified complication (principal); E78.5 Hyperlipidemia, unspecified; N40.1 Benign prostatic hyperplasia with lower urinary tract symptoms; N13.8 Other obstructive and reflux uropathy; E78.2 Mixed hyperlipidemia
CPT/HCPCS: 36415; 80048; 80061; 82043; 82570; 83036; 84153; 84450

== ENCOUNTER 2025-03-09 18:22 | Emergency (ER) | payer MEDICARE, SELFPAY ==
[2025-03-09] VITALS (10 sets, daily range): BP systolic 140–189; BP diastolic 73–88; PULSE 67–82; RESP 18–24; TEMP 36.2; O2SAT 94–97; BMI 27.7
--- NOTE | 2025-03-09 18:29 | DI.CT.S_ITS ---
PROCEDURE: CT ANGIO HEAD AND NECK INDICATIONS: left sided decreased sensation TECHNIQUE: After the administration of intravenous contrast, 1 mm thick sections acquired from the aortic arch through the [place]. 3-dimensional jwbhsjh-ekmlvtpwf-yugjkjxxkd (MIP) and/or volume rendering reformats were acquired of the central intracranial vasculature and neck separately. For radiation dose reduction, the following was used: automated exposure control, adjustment of mA and/or kV according to patient size. COMPARISON: [facility], CR, XR CHEST 1V, 03/09/2025, 18:28. [facility], CT, CT STROKE, 03/09/2025, 18:34. FINDINGS: Image quality: There is artifact associated with the metallic hardware. Artifact from the metallic hardware is reduced by metal reconstruction algorithm. Cerebral CT Angiogram: Internal carotid arteries: No acute findings. Intracranial ICA are patent with no significant stenosis. No occlusion. No aneurysm. Anterior cerebral arteries: This is considered to be a normal developmental variant of the [place], of typically no clinical consequence. The flow within the paired anterior cerebral arteries is otherwise normal and symmetric. The anterior communicating artery is seen. No aneurysms are seen. Middle cerebral arteries: Unremarkable. No significant stenosis. No occlusion. No aneurysm. Posterior cerebral arteries: Visualized portions of the vertebral arteries demonstrate normal caliber, and join to form a normal appearing basilar artery. There is a prominent right posterior communicating artery seen, with an accompanying diminutive right P1 segment. This is attributed to a type origin of the right posterior cerebral artery, which is considered to be a normal developmental variant of typically no clinical consequence. The flow within the posterior cerebral arteries is normal and symmetric. No aneurysms are seen. Basilar artery: Unremarkable. No significant stenosis. No occlusion. No aneurysm. Vertebral arteries: Unremarkable as visualized. Dural venous sinuses: Unremarkable given phase of enhancement. Other: Arterial phase appearance of the brain parenchyma is unremarkable. Neck CT Angiogram: Internal carotid arteries: Unremarkable. No significant stenosis. No dissection or occlusion. Common carotid arteries: Unremarkable. No significant stenosis. No dissection or occlusion. External carotid arteries: Unremarkable. No occlusion. Vertebral arteries: The origins of the vertebral arteries both appear widely patent. The more superior extracranial portions of both vertebral arteries also demonstrate normal courses and calibers. The left vertebral artery is dominant to the right. Aortic Arch and Mediastinum: Partially visualized aortic arch unremarkable without evidence of aneurysm. Origins of the great vessels unremarkable. Other: Arterial phase soft tissues of the neck and chest are unremarkable. At least moderate cervical spine degenerative change is seen. IMPRESSION: No significant intracranial arterial abnormality is seen. No significant abnormality is seen within the arteries of the neck. Additional findings: Rsodhv-gv-Cmmepv developmental anomalies. At least moderate cervical spine degenerative change Note: Case discussed by telephone with Dr. Morrison at 6:52 p.m. [place] time on March 09, 2025. Any quantitative measurements of stenosis were performed using NASCET criteria. Dictated by: Adam Andrade M.D. on 03/09/2025 at 17:53 Approved by: Adam Andrade M.D. on 03/09/2025 at 17:55
--- NOTE | 2025-03-09 18:29 | DI.CT.S_ITS ---
PROCEDURE: CT STROKE INDICATIONS: left sided decreased sensation TECHNIQUE: Noncontrast 4.5 mm thick angled axial sections acquired from the foramen magnum to the vertex, with coronal reformats. For radiation dose reduction, the following was used: automated exposure control, adjustment of mA and/or kV according to patient size. COMPARISON: [facility], CT, CT ANGIO HEAD AND NECK, 03/09/2025, 18:3 . FINDINGS: Image quality: Diagnostic. CSF spaces: Basal cisterns are patent. No extra-axial fluid collections. The ventricles are symmetric in size and shape. Brain: No intracranial bleeds or mass effect. There is cerebral volume loss, with resultant ventricular and sulcal prominence. There are periventricular and deep white matter chronic small vessel ischemic changes. There is intracranial internal carotid artery atherosclerosis. Skull and face: Calvarium and visualized facial bones appear intact, without suspicious lesions. Sinuses: Visualized sinuses and mastoids are clear. IMPRESSION: No acute intracranial hemorrhage is seen. No acute intracranial pathology. If there is strong clinical suspicion for an acute stroke, please consider a brain MRI for further evaluation, as it is more sensitive (assuming that there is no contraindication to MRI). Note: Case discussed by telephone with is Dr. Morrison at 6:52 p.m. [place] time on March 09, 2025. This study fulfills neurological imaging criteria for inclusion or exclusion of acute stroke therapies based on available published neurological guidelines. Dictated by: Adam Andrade M.D. on 03/09/2025 at 17:51 Approved by: Adam Andrade M.D. on 03/09/2025 at 17:52
--- NOTE | 2025-03-09 18:30 | DI.RAD.S_ITS ---
PROCEDURE: XR CHEST 1V INDICATIONS: stroke alert TECHNIQUE: One view of the chest was acquired. COMPARISON: [facility], CT, CT STROKE, 03/09/2025, 18:34. [facility], CT, CT ANGIO HEAD AND NECK, 03/09/2025, 18:34. FINDINGS: Surgical changes and devices: None. Lungs and pleura: An incomplete inspiratory result is noted, causing a crowded appearance to the lung markings. No focal infiltrates are seen. No pneumothorax or significant pleural effusions are seen. Mediastinum: The cardiac contours are within normal limits. The aorta demonstrates calcification and tortuosity. Bones and chest wall: No suspicious bony lesions. Overlying soft tissues appear unremarkable. IMPRESSION: Low lung volumes, without an acute abnormality seen by plain film. Dictated by: Adam Andrade M.D. on 03/09/2025 at 18:00 Approved by: Adam Andrade M.D. on 03/09/2025 at 18:01
--- NOTE | 2025-03-09 18:30 | ED_ITS ---
HPI - Neuro Symptoms/Deficit General Chief Complaint: Neuro Symptoms/Deficit Stated Complaint: L sided numbness in chest face and arm x1 hr Time Seen by Provider: 03/09/25 18:28 Source: patient Mode of arrival: Ambulatory History of Present Illness HPI Narrative: Patient is a 74-year-old male with a past medical history of diabetes, insulin- dependent, hyperlipidemia, hypertension he presents to the emergency department from home for evaluation of left-sided decreased sensation states that it started an hour prior to arrival this is at a proximally 5:00 p.m.. Patient states that it is to his left arm left upper lip left side of his face and tongue, he states it is improving, at time of initial evaluation patient with a NIH of 1 for decreased sensation to the left upper extremity. He denies trauma falls not on any blood thinners. He does however state that he did take a gummy prior to the symptoms onset. He states that he has done this in the past but he has never felt these symptoms before. He denies any other symptoms such as headache visual disturbance chest pain shortness breath fever chills nausea vomiting abdominal pain or any other GI/ symptoms at this time. On Anticoagulants: No Related Data Home Medications ?Medication ?Instructions ?Recorded ?Confirmed iron,carbonyl 65 mg-vitamin C 125 1 tab PO DAILY iron deficiency 05/08/24 02/21/25 mg tablet,delayed release Previous Rx's ?Medication ?Instructions ?Recorded empagliflozin 25 mg tablet 25 mg PO DAILY #90 tabs (Jardiance) irbesartan 75 mg tablet 75 mg PO DAILY #90 tabs 01/10 01/02 minoxidil 2.5 mg tablet 2.5 mg PO DAILY #90 tabs rosuvastatin 40 mg tablet 40 mg PO DAILY #90 tabs 01/10 01/02 sitagliptin phosphate 100 mg 100 mg PO DAILY #90 tabs 02/07/24 tablet (Januvia) tamsulosin 0.4 mg capsule 0.4 mg PO DAILY #90 caps trazodone 100 mg tablet 100 mg PO ONCE PM #90 tabs 1 semaglutide 14 mg tablet (Rybelsus) 14 mg PO DAILY #30 tabs 09/27/24 insulin glargine 100 unit/mL (3 See Rx Instructions MONTALVO BCUT QPM #15 11/09/24 mL) subcutaneous pen (Lantus mL Solostar U-100 Insulin) pen needle, diabetic 31 gauge x #100 ea 11/09/24 5/16 metformin 1,000 mg tablet,extended 1,000 mg PO BID #18 0 tabs 03/04/25 release 24hr (osmotic) Allergies Allergy/AdvReac Type Severity Reaction Status Date / Time duloxetine AdvReac Intermediate sexual Verified 03/09/25 18:25 dysfunction Review of Systems Review of Systems Narrative: General: Denies fever, chills, weight loss HEENT: Denies headache, eye drainage, eye irritation, head trauma, sore throat, voice change Cardiovascular: Denies any chest pain, palpitations, tachycardia Respiratory: Denies any shortness of breath, cough, wheeze, stridor GI/: Denies any abdominal pain, nausea, vomiting, diarrhea, bright red blood per rectum, melanotic stools, urinary frequency, urinary retention, dysuria, hematuria MSK: Denies any joint pain, muscle pains, swelling Skin: Denies any rashes, lesions, discoloration Neuro: Positive decreased sensation to the left face left tongue left upper extremity, Denies any headache, lightheadedness, dizziness, fainting, weakness Psych: Denies SI/HI Hematologic/Lymphatic On Anticoagulants: No Patient History Medical History BPH w urinary obs/LUTS DM type 2 with diabetic dyslipidemia Essential hypertension Generalized anxiety disorder History of colonic polyps Insomnia Iron deficiency anemia Mixed hyperlipidemia Polyneuropathy, unspecified Type 2 diabetes mellitus with polyneuropathy Surgical History S/P insertion of penile implant Status post left partial knee replacement Status post right partial knee replacement Social History details: 2021, partner (Joceline Epperson), grown children; retired boat sales household members: spouse Smoking Status: Never smoker Smoking Status: Never smoker Exam Narrative Exam Narrative: General: Cooperative, well-developed, not in acute distress HEENT: Normocephalic, atraumatic, PERRLA, normal sclera, eyelids normal Neck: Active full range of motion, atraumatic Chest: Normal to inspection, negative crepitus, no overlying erythema ecchymosis Respiratory: Normal respiratory effort, not in acute respiratory distress, clear to auscultation bilaterally negative cough, wheeze, tachypnea, rhonchi, rales Cardiology: Regular rate rhythm negative gallop, murmur, rubs GI/: No tenderness to palpation, soft, non rigid, normal to inspection, exam deferred MSK: Full active range of motion in all 4 extremities, atraumatic, no tenderness to palpation of any bony prominences Skin: No rashes or lesions noted Neuro: Patient NIH of 1 for decreased sensation to left upper extremity, Alert awake oriented x3, moves all 4 extremities spontaneously, cranial nerves intact, able to answer all questions appropriately follows commands appropriately Psych: Cooperative, negative suicidal or homicidal ideations Initial Vital Signs Initial Vital Signs: Vital Signs Temperature 97.2 F L 03/09/25 18:25 Pulse Rate 81 03/09/25 18:25 Respiratory Rate 18 03/09/25 18:25 Blood Pressure 189/88 H 03/09/25 18:25 Pulse Oximetry 96 03/09/25 18:25 Oxygen Delivery Method Room Air 03/09/25 18:25 Scores NIH Stroke Scale Level of Conciousness: Alert, keenly responsive Ask month/age: Answers both questions correctly. Open/close eyes, close hand: Performs both tasks correctly Best gaze horizontal: Normal Visual rolon: No visual loss Facial palsy: Normal symetrical movement Left arm drift: No drift for full 10 sec Right arm drift: No drift for full 10 sec Left leg drift: No drift for full 5 sec Right leg drift: No drift for full 5 sec Limb ataxia: Absent Sensory on face/arms/legs: Mild to moderate sensory loss, can tell touch (left upper extremity) Best language: No aphasia, normal Dysarthria: Normal Extinction or inattention: No abnormality Total NIH Stroke scale score: 1 Course Orders Ordered: ED Orders 03/09/25 18:[address] angio head and neck Stat EKG-12 Lead Stat 03/09/25 18:30 CXR [XR chest 1V] Stat 03/09/25 18:35 Complete Blood Count AUTO DIFF Stat Comprehensive Metabolic Panel Stat Ethanol (ETOH) Stat MAG [Magnesium] Stat PTT Partial Thromboplastin Eligio Stat Prothrombin Time INR Stat Troponin & CK Cardiac Panel Stat 03/09/25 20:16 Urinalysis and Microscopic Stat Urine Drug Screen, Rapid Stat Vital Signs Vital signs: Vital Signs - 8 hr 03/09/25 18:25 03/09/25 18:36 03/09/25 18:46 Temperature 97.2 F L Pulse Rate 81 80 Respiratory Rate 18 Blood Pressure 189/88 H Pulse Oximetry 96 97 96 Oxygen Delivery Method Room Air 03/09/25 18:46 03/09/25 19:00 03/09/25 19:00 Temperature Pulse Rate 82 Respiratory Rate 24 Blood Pressure 170/82 H 154/84 H Pulse Oximetry 97 Oxygen Delivery Method 03/09/25 19:30 03/09/25 19:30 03/09/25 20:00 Temperature Pulse Rate 77 72 Respiratory Rate 19 20 Blood Pressure 152/86 H Pulse Oximetry 97 97 Oxygen Delivery Method 03/09/25 20:00 Temperature Pulse Rate Respiratory Rate Blood Pressure 150/81 H Pulse Oximetry Oxygen Delivery Method MDM - Neuro Symptoms/Deficit Lab Data 03/09/25 18:35 03/09/25 18:35 Labs: Lab Results 03/09/25 03/09/25 03/09/25 Range/Units 18:33 18:35 20:16 WBC 9.6 (4.5-11.0) X10^3/uL RBC 5.23 (4.5-5.9) X10^6/uL Hgb 14.9 (13.5-17.5) g/dL Hct 44.1 (41-53) % MCV 84.3 (80-100) fL MCH 28.5 (26-34) PG MCHC 33.9 (30-36) % RDW 13.5 (11.6-14.8) % Plt Count 185 (150-400) X10^3/uL Neut % (Auto) 65.5 (50-75) % Lymph % (Auto) 22.9 L (25-40) % [place] % (Auto) 7.0 (3-14) % Eos % (Auto) 3.2 (2-4) % Baso % (Auto) 1.4 (0-2) % Neut # (Auto) 6300 (9542-9619) /uL Lymph # (Auto) 2200 (1067-4679) /uL [place] # (Auto) 700 (0-900) /uL Eos # (Auto) 300 (0-450) /uL Baso # (Auto) 100 (0-100) /uL PT 12.6 H (9.4-12.5) SECONDS INR 1.1 (0.9-1.3) APTT 29 (25.1-36.5) SECONDS Sodium 140 (137-145) mmol/L Potassium 4.0 (3.4-5.1) mmol/L Chloride 103 (98-107) mmol/L Carbon Dioxide 29 (22-32) mmol/L BUN 24 H (9-20) mg/dL Creatinine 1.13 (0.66-1.25) mg/dL Estimated GFR > 60 (>60) mL/min BUN/Creatinine Ratio 21.2 (6-22) Glucose 237 H (70-99) mg/dL POC Whole Bld Glucose 223 H (70-99) mg/dL Calcium 9.4 (8.4-10.2) mg/dL Magnesium 1.7 (1.6-2.3) mg/dL Total Bilirubin 0.5 (0.2-1.3) mg/dL AST 26 (17-59) IU/L ALT 31 (<50) IU/L Alkaline Phosphatase 72 (38-126) U/L Total Creatine Kinase 47 L (55-170) U/L Troponin I < 0.012 (0.01-0.034) ng/mL Total Protein 7.4 (6.3-8.2) g/dL Albumin 4.6 (3.5-5.0) g/dL Globulin 2.8 (1.7-4.1) g/dL Albumin/Globulin Ratio 1.6 (1.0-2.8) Urine Color Yellow Urine Appearance Clear Urine pH 6.5 (4.5-8.0) Ur Specific [place] 1.010 (1.000-1.035) Urine Protein Negative (Negative) Urine Glucose (UA) 2+ H (Negative) g/dL Urine Ketones Negative (NEGATIVE) Urine Occult Blood Negative (Negative) Urine Nitrate Negative (Negative) Urine Bilirubin Negative (NEGATIVE) Urine Urobilinogen 0.2 (0.2) E.U./dL Ur Leukocyte Esterase Negative (NEGATIVE) U Opiates 300ng/mL cut Negative (Negative) Ur Oxycodone Screen Negative (Negative) Urine Methadone Screen Negative (Negative) Ur Barbiturates Screen Negative (Negative) U Tricyclic Antidepress Negative (Negative) Ur Phencyclidine Scrn Negative (Negative) Ur Amphetamines Screen Negative (Negative) U Methamphetamines Scrn Negative (Negative) Ur MDMA Scrn (Ecstasy) Negative (Negative) U Benzodiazepines Scrn Negative (Negative) Urine Cocaine Screen Negative (Negative) U Marijuana (THC) Screen Positive H (Negative) Urine Specific [place] (Normal) Ethyl Alcohol < 10 (<10) mg/dL Ur Creatinine (Normal) 03/09/25 Range/Units 20:16 WBC (4.5-11.0) X10^3/uL RBC (4.5-5.9) X10^6/uL Hgb (13.5-17.5) g/dL Hct (41-53) % MCV (80-100) fL MCH (26-34) PG MCHC (30-36) % RDW (11.6-14.8) % Plt Count (150-400) X10^3/uL Neut % (Auto) (50-75) % Lymph % (Auto) (25-40) % [place] % (Auto) (3-14) % Eos % (Auto) (2-4) % Baso % (Auto) (0-2) % Neut # (Auto) (4642-5823) /uL Lymph # (Auto) (0347-7227) /uL [place] # (Auto) (0-900) /uL Eos # (Auto) (0-450) /uL Baso # (Auto) (0-100) /uL PT (9.4-12.5) SECONDS INR (0.9-1.3) APTT (25.1-36.5) SECONDS Sodium (137-145) mmol/L Potassium (3.4-5.1) mmol/L Chloride (98-107) mmol/L Carbon Dioxide (22-32) mmol/L BUN (9-20) mg/dL Creatinine (0.66-1.25) mg/dL Estimated GFR (>60) mL/min BUN/Creatinine Ratio (6-22) Glucose (70-99) mg/dL POC Whole Bld Glucose (70-99) mg/dL Calcium (8.4-10.2) mg/dL Magnesium (1.6-2.3) mg/dL Total Bilirubin (0.2-1.3) mg/dL AST (17-59) IU/L ALT (<50) IU/L Alkaline Phosphatase (38-126) U/L Total Creatine Kinase (55-170) U/L Troponin I (0.01-0.034) ng/mL Total Protein (6.3-8.2) g/dL Albumin (3.5-5.0) g/dL Globulin (1.7-4.1) g/dL Albumin/Globulin Ratio (1.0-2.8) Urine Color Urine Appearance Urine pH Normal (4.5-8.0) Ur Specific [place] (1.000-1.035) Urine Protein (Negative) Urine Glucose (UA) (Negative) g/dL Urine Ketones (NEGATIVE) Urine Occult Blood (Negative) Urine Nitrate (Negative) Urine Bilirubin (NEGATIVE) Urine Urobilinogen (0.2) E.U./dL Ur Leukocyte Esterase (NEGATIVE) U Opiates 300ng/mL cut (Negative) Ur Oxycodone Screen (Negative) Urine Methadone Screen (Negative) Ur Barbiturates Screen (Negative) U Tricyclic Antidepress (Negative) Ur Phencyclidine Scrn (Negative) Ur Amphetamines Screen (Negative) U Methamphetamines Scrn (Negative) Ur MDMA Scrn (Ecstasy) (Negative) U Benzodiazepines Scrn (Negative) Urine Cocaine Screen (Negative) U Marijuana (THC) Screen (Negative) Urine Specific [place] Normal (Normal) Ethyl Alcohol (<10) mg/dL Ur Creatinine Normal (Normal) Point of Care Testing Glucose POC 225 MDM Narrative Medical decision making narrative: Patient is a 74-year-old male with a past medical history of hypertension, hyperlipidemia, diabetes insulin-dependent coming into the ED from home for evaluation of left-sided face, tongue, upper extremity decreased sensation, said this started at around 5:00 p.m., at time of my evaluation patient NIH of 1 for decreased sensation to the left upper extremity, patient states that his symptoms are already improving. He denies any other symptoms no trauma no falls not on any blood thinners. Stroke alert was called immediately upon arrival, additional information was obtained and patient states that he actually took a gummy a little bit before his symptom onset, states that he has taken gummies in the past but states that he has never had these symptoms before. Patient workup has been unremarkable. At time of my re-evaluation patient states he has complete resolution of the symptoms. He states that he is completely back to baseline. Patient's lab work without any leukocytosis Chem panel unremarkable no severe electrolyte abnormality, patient's urine was positive for THC with known history of taking gummy. Patients EKG nonischemic in nature, troponin negative, CT head CT angio head and neck without any acute findings, I did offer patient admission for TIA workup given age and risk factors, however he states that he would actually prefer to follow up outpatient with his primary care doctor, patient will was given strict return precautions he verbalized understanding of this and agrees to being discharged home with outpatient follow up Discharge Plan Departure Patient Disposition: Home Clinical Impression: Numbness and tingling in left arm Instructions: DI for Transient Ischemic Attack Activity Restrictions/Additional Instructions: Please follow up with your primary care doctor for continued evaluation treatment of your symptoms Please read the discharge instructions sheet carefully and bring all papers to all doctor follow-up visits, as it may contain information that your doctor may want to see. Disease processes change and evolve, if your symptoms worsen or if you develop any new symptoms that are concerning to you please return for evaluation. Your evaluation today does not show any evidence of any life- threatening/serious illnesses requiring admission to the hospital or surgery. Please follow-up with your doctor for re-evaluation in approximately 1 day. Seek immediate medical attention for any worrisome symptoms. *If you do not have a primary care provider please contact the [facility] Resource line at [phone]. They will ask some questions about your medical history and help get you set up with a doctor in the community. Prescriptions: No Action (DME) pen needle, diabetic 31 gauge x 5/16 needle See Rx Instructions .Route Qty: 100 4RF Rx Instructions: use with insulin pen to administer insulin nightly. insulin glargine [Lantus Solostar U-100 Insulin] 100 unit/mL (3 mL) insulin pen See Rx Instructions SUBCUT QPM MDD 40 Qty: 15 3RF Rx Instructions: subcutaneously injection; Administer 15 units nightly. May increase dose to 40 units slowly if blood glucose levels remain above 200. metformin 1,000 mg tablet extended release 24hr 1,000 mg PO BID Qty: 180 3RF Rx Instructions: metFORMIN HCl ER (OSM) 1000MG er tablets- APPROVED through 04/10/2025. Reference #: [id number]. Rybelsus 14 mg tablet 14 mg PO DAILY Qty: 30 5RF Jardiance 25 mg tablet 25 mg PO DAILY Qty: 90 3RF irbesartan 75 mg tablet 75 mg PO DAILY Qty: 90 3RF minoxidil 2.5 mg tablet 2.5 mg PO DAILY Qty: 90 3RF rosuvastatin 40 mg tablet 40 mg PO DAILY Qty: 90 3RF Januvia 100 mg tablet 100 mg PO DAILY Qty: 90 3RF tamsulosin 0.4 mg capsule 0.4 mg PO DAILY Qty: 90 3RF trazodone 100 mg tablet 100 mg PO ONCE PM Qty: 90 3RF iron,carbonyl-vitamin C 65 mg iron- 125 mg tablet,delayed release (DR/EC) 1 tab PO DAILY Referrals: Francisco Levine MD [Primary Care Provider, Internal Medicine] Stand Alone Forms: Patient Portal/API
[2025-03-09 18:43] LABS: Add Manual Diff / Slide Review NO; Hematocrit 44.1 % (41-53); Hemoglobin 14.9 g/dL (13.5-17.5); Lymphocytes Absolute Auto 2200 /uL (1100-4500); Mean Corpuscular HGB Conc 33.9 % (30-36); Mean Corpuscular Hemoglobin 28.5 PG (26-34); Mean Corpuscular Volume 84.3 fL (80-100); Platelet Count 185 X10^3/uL (150-400)
--- NOTE | 2025-03-09 18:48 | EKG_ITS ---
[facility] [address] [place] [address] Test Date: 2025-03-09 Pat Name: Gatito Turk Department: [facility] Room: Gender: Male Crm Analyst: TOMI : 1950 Requested By: Order Number: [id number] Reading MD: Measurements Intervals [place] Rate: 84 P: 53 NH: 182 QRS: -20 QRSD: 94 T: 33 QT: 356 QTc: 420 Interpretive Statements Normal sinus rhythm Incomplete right bundle branch block Minimal voltage criteria for LVH, may be normal variant ( R in aVL ) Inferior infarct , age undetermined
--- NOTE | 2025-03-09 18:48 | PC.NURSE ---
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
[2025-03-09 18:50] LABS: INR 1.1 (0.9-1.3); Prothrombin Time 12.6 SECONDS (9.4-12.5)
[2025-03-09 18:53] LABS: PTT Partial Thromboplastin Tim 29 SECONDS (25.1-36.5)
[2025-03-09 18:54] LABS: Magnesium 1.7 mg/dL (1.6-2.3)
[2025-03-09 18:55] LABS: Alanine Aminotransferase 31 IU/L (<50); Albumin 4.6 g/dL (3.5-5.0); Albumin Globulin Ratio 1.6 (1.0-2.8); Alkaline Phosphatase 72 U/L (38-126); Blood Urea Nitrogen 24 mg/dL (9-20); Calcium 9.4 mg/dL (8.4-10.2); Carbon Dioxide 29 mmol/L (22-32); Chloride 103 mmol/L (98-107); Creatine Kinase 47 U/L (55-170); Estimated Glomerular Filt Rate > 60 mL/min (>60); Ethanol (ETOH) < 10 mg/dL (<10); Globulin 2.8 g/dL (1.7-4.1); Glucose 237 mg/dL (70-99); HEMOLYSIS < 15 (0-50); Potassium 4.0 mmol/L (3.4-5.1); Sodium 140 mmol/L (137-145); Total Protein 7.4 g/dL (6.3-8.2)
[2025-03-09 19:06] LABS: Troponin I < 0.012 ng/mL (0.01-0.034)
[2025-03-09 20:23] LABS: Appearance Urine UA CLEAR; Bilirubin Urine UA NEGATIVE (NEGATIVE); Color Urine UA YELLOW; Glucose Urine UA 2+ g/dL (Negative); Ketones Urine UA NEGATIVE (NEGATIVE); Leukocyte Esterase Urine UA NEGATIVE (NEGATIVE); Nitrite Urine UA NEGATIVE (Negative); Occult Blood Urine UA NEGATIVE (Negative); Protein Urine UA NEGATIVE (Negative); Specific Gravity Urine UA 1.010 (1.000-1.035); Urobilinogen Urine UA 0.2 E.U./dL (0.2); pH Urine UA 6.5 (4.5-8.0)
[2025-03-09 20:29] LABS: UR Morphine/Opiate cutoff 300 Negative (Negative); Ur Specific Gravity Normal (Normal); Urine MDMA Negative (Negative); Urine Methamphetamines Negative (Negative); Urine Tetrahydrocannabinol Positive (Negative); Urine Tricyclic Antidepressant Negative (Negative)
== END 2025-03-09 21:25 | disposition home or self-care (01) ==
PROVIDERS: Emergency Provider Student in an Organized Health Care Education/Training Program; PCP Internal Medicine
DX: R20.0 Anesthesia of skin (principal); R20.2 Paresthesia of skin; E11.9 Type 2 diabetes mellitus without complications; Z79.4 Long term (current) use of insulin; Z86.79 Personal history of other diseases of the circulatory system
CPT/HCPCS: 36415; 70450; 70496; 70498; 71045; 80053; 80305; 80320; 81001; 82550; 82962; 83735; 84484; 85025; 85610; 85730; 93005; 99284; Q9967

== ENCOUNTER → 2025-03-14 14:52 | Outpatient (CLI) | payer MEDICARE, SELFPAY | LOC: CAR 14:55 | PROVIDERS: PCP Internal Medicine; Referring Provider Internal Medicine; Visit Provider Internal Medicine | DX: R00.2 Palpitations (principal) | CPT/HCPCS: 93246 ==

== ENCOUNTER → 2025-03-14 15:47 | Outpatient (CLI) | payer MEDICARE, SELFPAY ==
--- NOTE | 2025-03-14 15:49 | DI.ECHO.S_ITS ---
[facility] : : [address] : : [place] : : [id number] : : Phone: [phone] Echocardiogram Report + + :Name: TYLER ROLLINS I Study Date: 03/14/2025 Height: 69 in : :Hospital ReadingLocation: Weight: 184 lb : : Gender: Male BSA: 2.0 m2 : :: 1950 Age: 74 yrs BP: 177/96 mmHg: :Reason For Study: TIA, Murmur : :Ordering Physician: AKUA, : :JORY Performed By: Oral Mendoza : :Referring: JORY FATIMA : + + Interpretation Summary Left ventricular wall thickness is mildly increased. The ejection fraction is estimated to be 50-55%. Diastolic function was not assessed. The right ventricle is normal in size and function. Doppler interrogation and injection of saline echo contrast shows no evidence for an interatrial shunt. There is moderate aortic stenosis. Pulmonary artery pressures cannot be estimated because of the lack of a measurable TR jet velocity but the IVC suggests a CVP of around 3 mmHg. Procedure: A two-dimensional transthoracic echocardiogram with color flow and Doppler was performed. The study quality was technically adequate. A saline contrast injection was performed to assess for cardiac shunting. There is no prior echocardiogram noted for this patient. The patient was in normal sinus rhythm during the exam. Left Ventricle: The left ventricle is normal in size. Left ventricular wall thickness is mildly increased. Overall left ventricular systolic function is preserved. The ejection fraction is estimated to be 50-55%. Diastolic function was not assessed. Right Ventricle: The right ventricle is normal in size and function. Atria: The left atrial size is normal. Right atrial size is normal. Bubble study was captured on image frame(s) # [id number]. Doppler interrogation and injection of saline echo contrast shows no evidence for an interatrial shunt. Bubble study performed per protocol. Negative bubble study with no bubbles visualized crossing into the left atrium or left ventricle. Mitral Valve: There is mild mitral annular calcification. The mitral valve leaflets appear mildly thickened, but open well. There is no mitral valve stenosis. There is trace mitral regurgitation. Aortic Valve: The aortic valve is trileaflet. The aortic valve is moderately calcified. There is moderate aortic stenosis. The calculated aortic valve area is 1.1 cm2. The peak aortic velocity is 3.1 m/sec. The aortic valve mean gradient is 24 mmHg. sev ratio: 0.30. There is trace aortic regurgitation. Tricuspid Valve: The tricuspid valve is not well visualized, but is grossly normal. There is trace tricuspid regurgitation. Pulmonary artery pressures cannot be estimated because of the lack of a measurable TR jet velocity but the IVC suggests a CVP of around 3 mmHg. Pulmonic Valve: The pulmonic valve is not well seen, but is grossly normal. There is trace pulmonic regurgitation. Great Vessels: The aortic root is normal size. The ascending aorta is normal in size. The aortic arch could not be visualized. The pulmonary artery is normal size. The IVC is of normal diameter and collapses greater than 50% with a sniff. This suggests a low right atrial pressure of 3 mm Hg. Pericardium/ Pleura There is no pericardial effusion. MMode/2D Measurements & Calculations LVIDd: 4.5 cm LVOT diam: 2.1 cm LVIDs: 3.2 cm Ao root diam: 3.3 cm FS: 27.7 % asc Aorta Diam: 3.6 cm EPSS: 0.72 cm IVSd: 1.2 cm LVPWd: 1.3 cm LV field. diameter/BSA (cm/m^2): 2.2 LV sys. diameter/BSA (cm/m^2): 1.6 LA A2 area: 17.6 cm2 RA long axis: 4.7 cm LA A4 area: 19.5 cm2 RA area: 12.5 cm2 LA length (vol): 5.6 cm RA vol: 28.2 ml LA vol: 52.5 ml RA : 14.1 ml/m2 LA vol index: 26.3 ml/m2 IVC diam: 2.0 cm RVD1 (basal): 2.6 cm RVD2 (mid): 2.3 cm TAPSE: 2.3 cm Doppler Measurements & Calculations Ao V2 max: 311.5 cm/sec LVOT Max Clay: 99.6 cm/sec Ao V2 mean: 233.9 cm/sec LV V1 max P.0 mmHg Ao max P.8 mmHg LV V1 VTI: 22.0 cm Ao mean P.9 mmHg ADELA(I,D): 1.0 cm2 Ao V2 VTI: 74.1 cm ADELA(V,D): 1.1 cm2 sev ratio: 0.30 ADELA indexed to BSA (cm^2/m^2): 0.52 MV E max clay: 55.6 cm/sec TR max clay: 180.3 cm/sec MV A max clay: 86.2 cm/sec TR max P.0 mmHg MV E/A: 0.64 PA V2 max: 80.1 cm/sec MV dec time: 0.26 sec PA V2 mean: 55.3 cm/sec PA mean P.4 mmHg PA pr(Accel): 34.0 mmHg SV(LVOT): 77.4 ml Qp/Qs (V,Ao): 1.0/10.3 Qp/Qs (V,LVOT): 1.0/1.4 Reading Physician:09:00 PM
== END ==
PROVIDERS: PCP Internal Medicine; Referring Provider Internal Medicine; Visit Provider Internal Medicine
DX: I34.81 Nonrheumatic mitral (valve) annulus calcification (principal); I35.0 Nonrheumatic aortic (valve) stenosis; R01.1 Cardiac murmur, unspecified; G45.9 Transient cerebral ischemic attack, unspecified
CPT/HCPCS: 93246; 93306

== ENCOUNTER → 2025-03-19 07:56 | Outpatient (CLI) | payer MEDICARE, SELFPAY ==
--- NOTE | 2025-03-19 08:05 | DIAB.MNTFU ---
Follow-up Diabetes Medical Nutrition Therapy Assessment Name: Gatito Turk I Date: 03/19/25 Time: 8850a Dx: Type II Diabetes Gatito presents for follow-up DM visit. Up to 42u Lantus BID after PCP visit. Much improved FBG. States his CGM Mickey was unreliable, which is consistent with a recent recall. Has D/c'd Metformin and diarrhea subsided. Recent TIA. Motivated to make lifestyle changes. Reports wt gain, may be r/t increased insulin therapy and improving BG. Recently increased Lantus to 42u BID after PCP visit with improved FBG this morning. PCP note indicates up to 45u BID if BG >200mg/dl. Endorses veggie intake less than 1x per day Reports hesitation for eating fish due to Mercury levels Endorses eating hoang fat most his life, but recently switched to avocado oil. Grandfather lost eye sight from diabetes. States he was on insulin therapy. UTD on his eye appt. Anthropometrics: Ht: 5'10 Wt: 189# 03/2025 174.8# reported 10/2024 181.5# 08/2024 Physical Activity: Interested in increasing activity. Motivated to make lifestyle changes. Self-Monitoring Blood Glucose: Due to recalls, does not want to use Mickey CGM anymore. Has been doing finger pricks. All elevated signficantly. Date Pre Post Pre Post Pre Post notes 03/13 214 03/14 181 03/15 205 234 03/16 315 314 03/17 205 308 202 03/18 187 236 226 03/19 142 200 Last TIR: 49% very high 41% high 10% in range 0% low avmg/dl GMI: 9.4% variance: 24.4% Previous TIR: 10% very high 42% high 48% in range 0% low avmg/dl GMI: 7.8% variance: 23.1% Diabetes Medications: 25mg Jardiance 1000mg Metformin BID-- d/c 100mg Januvia 14mg Rybelsus 42u Lantus BID (up to 45u BID) Pertinent Labs: HgA1c: 9.2% 02/2024 9.9% 08/2024 8.6% 11/2024 Past Medical History: (Last Reviewed 05/08/24 @ 07:43 by Francisco Levine MD)BPH w urinary obs/LUTSDM type 2 with diabetic dyslipidemia Essential hypertension Generalized anxiety disorder History of colonic polyps Insomnia Iron deficiency anemia Mixed hyperlipidemia Polyneuropathy, unspecified Type 2 diabetes mellitus with polyneuropathy Nutrition Rx: Carbohydrates: Meal:45gSnack:15-30g Nutrition Diagnosis: - Nutrition and food related knowledge deficit r/t needing more info on heart health nutrition aeb pt report - Predicted inadequate fiber intake r/t limited whole grains or veggies aeb diet recall - Predicted excessive saturated fat intake r/t stage of change aeb pt report of lifelong use of high sat fat options Intervention: This participant was very receptive. Provided appropriate educational handouts. Discussed the following topics: Medication management BG review and goals Physical activity Heart healthy nutrition: fats and fiber Fish intake and safety CHO portions Veggie intake strategies Created SMART goals for patient self-care and success. Goals: Call pharmacy regarding Rybelsus- met Aim for 30-60min activity per day- new Veggies 1x per day or more- new Choose higher fiber options discussed-new Choose mono or polyunsaturated fats as discussed- new Follow-up: ANILA PASCUAL follow-up in 2-3 weeks Melba Montero RDN, [facility] Certified Diabetes Care and [employer] P: [phone] Thank you for this referral
== END ==
LOC: DIET 07:57
PROVIDERS: PCP Internal Medicine; Referring Provider Internal Medicine
DX: E11.9 Type 2 diabetes mellitus without complications (principal); Z71.3 Dietary counseling and surveillance; Z79.84 Long term (current) use of oral hypoglycemic drugs; Z79.4 Long term (current) use of insulin
CPT/HCPCS: 97803

== ENCOUNTER → 2025-03-20 07:07 | Outpatient (CLI) | payer MEDICARE, SELFPAY ==
--- NOTE | 2025-03-20 07:10 | DI.MRI.S_ITS ---
PROCEDURE: MRI brain with and without contrast. MR angiogram brain without contrast. MR angiogram neck with and without contrast. INDICATIONS: tia TECHNIQUE: Multiplanar multisequential MRI images of the brain were obtained before and after intravenous contrast injection. 3D [id number] MR angiogram of the brain without contrast with MIP 3D modeling. Coronal MR angiogram of the neck was obtained after intravenous contrast injection, and MIP 3D modeling obtained. COMPARISON: None. FINDINGS: BRAIN: CSF spaces: Ventricles are normal in size and shape. Basal cisterns are patent. No extra-axial fluid collections. Brain: No intracranial bleeds or mass effects. Barton-white matter interface is normal. Diffusion weighted images show no acute infarct. Brainstem appears normal. Normal intravascular flow voids are present. No abnormal intracranial enhancement. Age-appropriate atrophy and white matter chronic ischemic change Skull and face: Calvarial marrow signal is normal. Orbits appear normal. Sinuses: Sinuses and mastoids are clear. BRAIN MR ANGIOGRAM: Anterior circulation: Intracranial internal carotid arteries are normal in size and enhancement. The flow within the paired anterior cerebral arteries is normal and symmetric. The flow within the middle cerebral arteries is normal and symmetric. The anterior communicating artery is seen. No stenoses, occlusions, or aneurysms. Posterior circulation: The visualized portions of the vertebral arteries demonstrate normal caliber, and join to form a normal appearing basilar artery. The flow within the posterior cerebral arteries is normal and symmetric. No stenoses, occlusions, or aneurysms. 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 The P2 segment is supplied by a widely patent posterior communicating artery. Remainder of the distal vasculature unremarkable. Diminutive hypoplastic right vertebral artery terminates in the posterior inferior cerebellar artery. Dominant left vertebral artery supplies a normal basilar artery NECK MR ANGIOGRAM: Carotids: Great vessels demonstrate a conventional anatomy as they arise from the aortic arch. The origins of the common carotid arteries appear patent. The calibers and courses of both common carotid arteries are normal. The bifurcation regions appear normal bilaterally. The internal carotid arteries demonstrate normal course and caliber. Posterior circulation: The origins of the vertebral arteries appear patent. More superior portions of both vertebral arteries demonstrate normal course and caliber, and join to form a normal appearing basilar artery. Miscellaneous: Subclavian arteries appear patent. Pre-contrast images through the neck show no soft tissue abnormalities. IMPRESSION: Mild age-appropriate atrophy and chronic ischemic change without acute infarct, hemorrhage or mass lesion. Unremarkable MR angiogram of the brain without large vessel occlusion, aneurysm or vascular malformation. Unremarkable MR angiogram of the neck without stenosis or occlusion. Approved by: Pantera Mc M.D. on 03/20/2025 at 8:49
== END ==
LOC: MRI 07:09
PROVIDERS: PCP Internal Medicine; Referring Provider Internal Medicine; Visit Provider Internal Medicine
DX: G45.9 Transient cerebral ischemic attack, unspecified (principal); R20.0 Anesthesia of skin; R20.2 Paresthesia of skin
CPT/HCPCS: 70544; 70549; 70553; A9579